=== PATIENT | female | born 1955 | race Two or more races ===

== ENCOUNTER 2019-01-14 00:28 | Emergency (ER) | payer OTHER ==
[~2019-01-14] VITALS: Ht 167.6 cm; Wt 71.7 kg
--- NOTE | 2019-01-14 00:37 | NUR ---
TO ER BED 11 BIB EMS C/O AMS, TACHYCARDIA. PT HOT TO TOUCH. PT AAOX1, NO ACUTE DISTRESS NOTED, RESP EVEN AND UNLABORED. PLACE PT ON CARDIAC MONITORING, CONTINUOUS POX. ER MD AT BEDSIDE TO EVAL PT WITH ORDERS RECEIVED.
[2019-01-14] MEDS ORDERED: ACETAMINOPHEN 650 MG/SUPP.RECT RC ONE ×2 (00:59→01:30)
[2019-01-14] MEDS ORDERED: CEFTRIAXONE 1GM BAG (ER ONLY) 50 ML IV ONE ×2 (00:59→01:00)
[2019-01-14] MEDS ORDERED: ACETAMINOPHEN ES 500 MG TABLET PO ONE (01:00)
[2019-01-14] MEDS ORDERED: IV NS 0.9% 1,000 ML BAG IV ONE (01:00)
[2019-01-14 01:02] LABS: BASOPHILS # (AUTO) 0.2 /CMM (0.0-0.2); BASOPHILS % (AUTO) 1.2 % (0.0-2.0); EOSINOPHILS % (AUTO) 0.2 % (0.0-6.0); HEMATOCRIT 48 % (33-45); HEMOGLOBIN 15.9 g/dL (11.5-14.8); LYMPHOCYTES # (AUTO) 1.9 /CMM (0.8-4.8); LYMPHOCYTES % (AUTO) 14.8 % (20.0-44.0); MEAN CORPUSCULAR HGB CONC 33 g/dl (31.0-36.0); MEAN CORPUSCULAR VOLUME 86 fL (82-100); MONOCYTES # (AUTO) 0.9 /CMM (0.1-1.30); MONOCYTES % (AUTO) 7.3 % (2.0-12.0); NEUTROPHILS # (AUTO) 9.9 /CMM (1.8-8.9); NEUTROPHILS % (AUTO) 76.5 % (43.0-81.0); PLATELET COUNT (AUTO) 404 /CMM (150-450); RED BLOOD CELL COUNT(AUTO) 5.58 MIL/uL (4.0-5.2); WHITE BLOOD COUNT (AUTO) 12.9 K/uL (4.3-11.0)
[2019-01-14 01:12] LABS: CALCIUM, SERUM 9.7 mg/dL (8.5-10.1); CARBON DIOXIDE 23 mmol/L (21-32); CHLORIDE 95 mmol/L (98-107); CREATININE 0.8 mg/dL (0.6-1.3); GLUCOSE 129 mg/dL (74-106); POTASSIUM 4.3 mmol/L (3.5-5.1); SODIUM SERUM 128 mmol/L (136-145); UREA NITROGEN, BLOOD 12 mg/dL (7-18)
[2019-01-14 01:25] LABS: ALANINE AMINOTRANSFERASE 18 U/L (12-78); ALBUMIN 3.7 g/dL (3.4-5.0); ALKALINE PHOSPHATASE 94 U/L (46-116); ASPARTATE AMINOTRANSFERASE 9 U/L (15-37); B-TYPE NATRIURETIC PEPTIDE 105 PG/ML (0-125); BILIRUBIN,DIRECT 0.1 mg/dL (0.0-0.2); BILIRUBIN,TOTAL 0.5 mg/dL (0.2-1.0); TOTAL PROTEIN, SERUM 8.7 g/dL (6.4-8.2)
--- NOTE | 2019-01-14 01:25 | NUR ---
I&O CATH DONE, NOTED CLEAR YELLOW URINE APPROXIMATELY 75ML'S. URINE SAMPLE COLLECTED AND SENT TO LAB.
[2019-01-14 01:31] LABS: APPEARANCE,URINE Cloudy (CLEAR); BILIRUBIN,URINE Negative (NEGATIVE); BLOOD, URINE Small Ery/uL (NEGATIVE); COLOR,URINE Yellow (YELLOW); KETONES,URINE Negative (NEGATIVE); LEUKOCYTE ESTERASE ,URINE Large (NEGATIVE); NITRITE, URINE Negative (NEGATIVE); PH,URINE 6.5 (5.0-8.0); PROTEIN,URINE 100 mg/dl (NEGATIVE); UGLUCOSE Negative (NEGATIVE); UROBILINOGEN,URINE 0.2 EU/dL (0.2)
[2019-01-14 02:07] LABS: BACTERIA,URINE Few /HPF (None Seen); SQUAMOUS EPITHELIAL CELL,UR Few /HPF (None Seen); WBC,URINE TOO NUMEROUS TO COUN /HPF (0-3)
--- NOTE | 2019-01-14 03:05 | NUR ---
PT RESTING QUIETLY, NO ACUTE DISTRESS NOTED, RESP EVEN AND UNLABORED. CALL LIGHT WITHIN REACH. LAB RESULTS RECEIVED. ER MD MADE AWARE. PENDING DISPOSITION. WILL CONTINUE TO MONITOR PT CLOSELY.
[2019-01-14] MEDS ORDERED: SENN-168 PO (03:25)
[2019-01-14] MEDS ORDERED: METO25TA6 PO (03:25)
[2019-01-14] MEDS ORDERED: CARB-93 PO (03:25)
[2019-01-14] MEDS ORDERED: PANT40TA2 PO (03:25)
[2019-01-14] MEDS ORDERED: TYL2T PO (03:25)
[2019-01-14] MEDS ORDERED: DOCU-141 PO (03:25)
[2019-01-14] MEDS ORDERED: LISI10TA5 PO (03:25)
[2019-01-14] MEDS ORDERED: AMLO5TAB9 PO (03:25)
[2019-01-14] MEDS ORDERED: TRAZ-182 PO (03:25)
[2019-01-14] MEDS ORDERED: ASPI-1169 PO (03:25)
[2019-01-14] MEDS ORDERED: HYDR-4384 PO (03:25)
--- NOTE | 2019-01-14 03:45 | NUR ---
PER KATHIA COLLADO SENIOR ENERGY MARKET COORDINATOR. PT WILL MOST LIKELY TRANSFER TO [facility]. PENDING TRANSFER INFORMATION
--- NOTE | 2019-01-14 04:10 | NUR ---
DR. HOUSTON ON THE PHONE WITH KATHIA SAMUEL, DR. YOON
--- NOTE | 2019-01-14 04:15 | NUR ---
PT RESTING QUIETLY, NO ACUTE DISTRESS NOTED, RESP EVEN AND UNLABORED. NO PAIN OR DISCOMFORT NOTED. TOTAL PT CARE DONE. CALL LIGHT WITHIN REACH. WILL CONTINUE TO MONITOR PT.
--- NOTE | 2019-01-14 05:33 | NUR ---
TRANSFER INFORMATION: [facility], [place] ACCEPTING MD: DR. YOON BED ASSIGNMENT: [id number] NUMBER FOR REPORT: [phone] NURSE FOR REPORT: JHONATAN WHEATLEY [facility] [id number]
--- NOTE | 2019-01-14 05:40 | NUR ---
NEW ETA FOR AMBULANCE. ETA: 45 MINS AMBULANCE CO: [facility]
--- NOTE | 2019-01-14 06:09 | NUR ---
JOYCE CALLED TO [facility] HEAD BATCHERJHONATAN WHEATLEY. AWAITING AMBULANCE TRANSPORT.
[2019-01-14 06:10] VITALS: BP 127/77
--- NOTE | 2019-01-14 06:26 | NUR ---
TRANSPORT AT [facility] REPORT GIVEN TO EMT.
== END 2019-01-14 06:47 | disposition short-term general hospital (02) ==
LOC: ER 00:29
DX: A41.9 Sepsis, unspecified organism (principal); N39.0 Urinary tract infection, site not specified; R41.0 Disorientation, unspecified; R00.0 Tachycardia, unspecified; I10 Essential (primary) hypertension; K21.9 Gastro-esophageal reflux disease without esophagitis; F03.90 Unspecified dementia, unspecified severity, without behavioral disturbance, psychotic disturbance, mood disturbance, and anxiety; Z88.5 Allergy status to narcotic agent; Z96.652 Presence of left artificial knee joint
CPT/HCPCS: 36415; 51702; 71045; 80048; 80076; 81001; 83605; 83880; 84145; 84484; 85025; 85730; 87040 ×2; 87086; 93005; 96365; 99285; J0696; J7030 ×2; 81000-TC

== ENCOUNTER 2019-04-07 03:18 | Inpatient (IN) | payer OTHER ==
[2019-04-07] VITALS (42 sets, daily range): BP systolic 81–131; BP diastolic 52–77
[~2019-04-07] VITALS: Ht 167.6 cm; Wt 61.7 kg
[~2019-04-07 03:18] MED LIST: AMLO5TAB9 PO; ASPI-1169 PO; CARB-93 PO; DOCU-141 PO; HYDR-4384 PO; LISI10TA5 PO; METO25TA6 PO; PANT40TA2 PO; SENN-168 PO; TRAZ-182 PO; TYL2T PO
--- NOTE | 2019-04-07 03:27 | NUR ---
Carmela oh in [facility] - 04/07/19 at 0418 by ANASTASIYA PATIENT RAN OUT OF BACK EXIT EMERGENCY DOOR.
[2019-04-07] MEDS ORDERED: ACETAMINOPHEN 650 MG/SUPP.RECT RC ONE ×3 (03:30→03:58)
[2019-04-07] MEDS ORDERED: IV NS 0.9% 1,000 ML BAG IV ONE (03:30)
[2019-04-07] MEDS ORDERED: PIPERACILLIN /TAZOBACTAM 3.375 G in IV D5W 50 ML IV ONE (03:30)
[2019-04-07] MEDS ORDERED: VANCOMYCIN 1 GM in IV D5W 250 ML IV ONE (03:30)
[2019-04-07] MEDS ORDERED: PIPERACILLIN /TAZOBACTAM 3.375 G VIAL IV ONE (03:37)
[2019-04-07] MEDS ORDERED: PROPOFOL 100 ML ONE (03:37)
[2019-04-07 03:44] LABS: BASOPHILS # (AUTO) 0.1 /CMM (0.0-0.2); BASOPHILS % (AUTO) 0.4 % (0.0-2.0); EOSINOPHILS % (AUTO) 0.1 % (0.0-6.0); HEMATOCRIT 51 % (33-45); HEMOGLOBIN 16.9 g/dL (11.5-14.8); LYMPHOCYTES # (AUTO) 1.2 /CMM (0.8-4.8); LYMPHOCYTES % (AUTO) 6.9 % (20.0-44.0); MEAN CORPUSCULAR HGB CONC 33 g/dl (31.0-36.0); MEAN CORPUSCULAR VOLUME 90 fL (82-100); MONOCYTES # (AUTO) 1.1 /CMM (0.1-1.30); MONOCYTES % (AUTO) 6.5 % (2.0-12.0); NEUTROPHILS # (AUTO) 15.1 /CMM (1.8-8.9); NEUTROPHILS % (AUTO) 86.1 % (43.0-81.0); PLATELET COUNT (AUTO) 578 /CMM (150-450); RED BLOOD CELL COUNT(AUTO) 5.64 MIL/uL (4.0-5.2); WHITE BLOOD COUNT (AUTO) 17.5 K/uL (4.3-11.0)
--- NOTE | 2019-04-07 03:44 | NUR ---
PT GOT INTUBATED AT THE BED SIDE BY DR. WEINER SUCCESSFULLY. SIZE 7.5 AND 26 AT LIP. PT TOLERATED THE PROCEDURE WELL.
--- NOTE | 2019-04-07 03:44 | NUR ---
END TIME FOR ZOSYN: 0414 LAC 18G
[2019-04-07 03:48] LABS: CARBON DIOXIDE 19 mmol/L (21-32); CHLORIDE 108 mmol/L (98-107); CREATININE 1.6 mg/dL (0.6-1.3); GLUCOSE 199 mg/dL (74-106); POTASSIUM 3.7 mmol/L (3.5-5.1); SODIUM SERUM 146 mmol/L (136-145); UREA NITROGEN, BLOOD 28 mg/dL (7-18)
[2019-04-07 03:54] LABS: ALANINE AMINOTRANSFERASE 14 U/L (12-78); ALBUMIN 3.4 g/dL (3.4-5.0); ALKALINE PHOSPHATASE 72 U/L (46-116); ASPARTATE AMINOTRANSFERASE 17 U/L (15-37); BILIRUBIN,DIRECT 0.2 mg/dL (0.0-0.2); TOTAL PROTEIN, SERUM 7.8 g/dL (6.4-8.2)
--- NOTE | 2019-04-07 04:00 | NUR ---
F/C INSERTED. URINE COLLECTED AND SENT TO THE LAB
[2019-04-07] MEDS ORDERED: VANCOMYCIN 1 GM VIAL ONE (04:03)
--- NOTE | 2019-04-07 04:05 | NUR ---
rt called to pt bedside for pt desaturation. pt found on unresponsive nrb spo2 approximately 85% pt intubated by dr thomson 7.5ett at 26cm. mist in the tube positive color change and equal chest rise. ett secured via anchorfast. pt placed on vent ac 20 450 100%, no peep due to decreased blood pressure at this time. ambu bag at bedside alarms set and audible. disconnect alarms checked. suctioned a large amount of thick green secretions. hr increased to 120, blood pressure decreased at this time. pt receiving no breathing tx at this time Addendum: 04/07/19 at 0411 by MARIAM CALVO RT Amended: Links added.
[2019-04-07 04:10] LABS: APPEARANCE,URINE Cloudy (CLEAR); BILIRUBIN,URINE SMALL (NEGATIVE); BLOOD, URINE Trace-intact Ery/uL (NEGATIVE); COLOR,URINE Dark (YELLOW); KETONES,URINE Trace (NEGATIVE); LEUKOCYTE ESTERASE ,URINE Trace (NEGATIVE); NITRITE, URINE Negative (NEGATIVE); PH,URINE 5.5 (5.0-8.0); PROTEIN,URINE 100 mg/dl (NEGATIVE); UGLUCOSE Negative (NEGATIVE); UROBILINOGEN,URINE 0.2 EU/dL (0.2)
[2019-04-07] MEDS ORDERED: MIDAZOLAM HCL 5 MG/5ML VIAL ONE (04:13)
[2019-04-07] MEDS ORDERED: MIDAZOLAM HCL 5 MG/5ML VIAL IV ONE (04:30)
--- NOTE | 2019-04-07 04:44 | NUR ---
X RAY AT THE BED SIDE
--- NOTE | 2019-04-07 05:00 | NUR ---
PANEL PAGED PER ER MD ORDER.
--- NOTE | 2019-04-07 05:01 | NUR ---
ER TALKING TO DR. MURGUIA REGARDING PT ADMISSION.
[2019-04-07] MEDS ORDERED: GABA800T11 PO (05:09)
[2019-04-07] MEDS ORDERED: MULT1TAB73 PO (05:09)
[2019-04-07] MEDS ORDERED: CRAN450C PO (05:09)
[2019-04-07] MEDS ORDERED: ASCO500W7 PO (05:09)
[2019-04-07] MEDS ORDERED: FERR325T23 PO (05:09)
[2019-04-07] MEDS ORDERED: LATA2.5D2 EACHEYE (05:09)
--- NOTE | 2019-04-07 05:09 | NUR ---
RT AT THE BED SIDE FOR ABG DRAW
[2019-04-07 05:10] LABS: RBC,URINE 0-2 /HPF (0-2)
[2019-04-07 05:11] LABS: BACTERIA,URINE Rare /HPF (None Seen); CALCIUM OXALATE CRYSTALS,UR MANY /HPF (None Seen); SQUAMOUS EPITHELIAL CELL,UR Moderate /HPF (None Seen)
[2019-04-07 05:28] LABS: ABG BASE EXCESS -9.8 mmol/L; ABG OXYGEN SATURATION 98.8 % (92.0-98.5); ABG PCO2 28.2 mmHg (35.0-45.0); ABG PH 7.331 (7.350-7.450); AaDO2 453.8 mmHg; COHb 0.2 % (0.5-1.5); MetHb 0.6 % (0.0-1.5); PEEP,BG 0 cm H2O; SITE, ABG Right Radial; VENT MODE, BG AC 20 450 100% +0; VT, ABG 450 mL
[2019-04-07] MEDS ORDERED: ACETAMINOPHEN 325 MG TABLET PO PRN (05:30)
[2019-04-07] MEDS ORDERED: SUCCINYLCHOLINE CHLORIDE 20 MG/ML VIAL IV ONE ×2 (05:30→08:58)
[2019-04-07] MEDS ORDERED: HYDROCODONE/APAP 5/325MG 1 EACH TABLET PO PRN (05:30)
[2019-04-07] MEDS ORDERED: ZOLPIDEM TARTRATE 5 MG TABLET PO PRN (05:30)
[2019-04-07] MEDS ORDERED: Z GUARD REMEDY 2 OZ OINT TP PRN (05:30)
[2019-04-07] MEDS ORDERED: ETOMIDATE 2 MG/ML VIAL IV ONE ×2 (05:30→08:58)
[2019-04-07] MEDS ORDERED: MAGNESIUM HYDROXIDE 30 ML UDC PO PRN (05:30)
[2019-04-07] MEDS ORDERED: ONDANSETRON HCL/PF 4 MG/2 ML VIAL IVP PRN (05:30)
[2019-04-07] MEDS ORDERED: MAG HYDROX/AL HYDROX/SIMETH 30 ML UDC PO PRN (05:30)
[2019-04-07] MEDS ORDERED: PROPOFOL 100 ML IV PRN (06:00)
[2019-04-07] MEDS ORDERED: OSELTAMIVIR PHOSPHATE 75 MG CAPSULE PO ONE (06:30)
[2019-04-07] MEDS ORDERED: OSELTAMIVIR PHOSPHATE 75 MG CAPSULE ONE (06:36)
--- NOTE | 2019-04-07 07:56 | NUR ---
REPORT GIVEN TO ICU NURSE SAMRA ISRAEL.
--- NOTE | 2019-04-07 08:16 | NUR ---
PATIENT TRANSFERRED TO ICU VIA ACLS PROTOCOL. RT AT BEDSIDE. NO DISTRESS NOTED. ENDORSED TO DANIELLE ISRAEL.
--- NOTE | 2019-04-07 08:20 | NUR ---
ICU/RN: REVEIVED REPORT FROM JHONATAN RAMOS. PT TRANSFERRED TO [facility] VIA [facility]. PT INTUBATED ETT7.5, 26 AT THE LIP ON VENT SETTINGS ORDERED BY MD. NO ACUTE DISTRESS NOTED. PT ON DIPRIVAN, 5MCG/KG/MIN. OPENS EYES, FOLLOWS SIMPLE COMMANDS. MENDOZA CATH IN PLACE, DRAINING YELLOW URINE. PIVS PATENT AND INTACT, NO S/S OF INFECTION OR INFILTRATION NOTED. RIGHT NARE NG TUBE IN PLACE, PLACEMENT VERIFIED. BILATERAL SOFT RESTRAINTS FOR SAFETY, ASSESSED PER PROTOCOL. ALL NEEDS WILL BE ATTENDED TO, SAFETY MEASURES TAKEN, BED IN LOW POSITION, SIDE RAILS UP, CALL LIGHT WITHIN REACH. SKIN PHOTOS DONE AND PLACED IN CHART, WILL CONTINUE CARE.
[2019-04-07] MEDS ORDERED: FEE PK DOSING 1 MIN EA MC ONE (08:36)
[2019-04-07] MEDS: IV NS 0.9% 1,000 ML IV PRN ×2 (09:57→17:50)
[2019-04-07] MEDS: PANTOPRAZOLE 40 MG VIAL IV SCH (09:57)
[2019-04-07] MEDS ORDERED: IV NS 0.9% 500 ML IV ONE (10:00)
--- NOTE | 2019-04-07 10:00 | NUR ---
ICU/RN: BORDERLINE BP, TLO ORDERS RECEIVED FOR 500ML BOLUS FROM , WILL FOLLOW THROUGH.
[2019-04-07] MEDS: PROPOFOL 100 ML IV PRN (10:13)
[2019-04-07] MEDS: PIPERACILLIN /TAZOBACTAM 2.25 G in IV D5W 50 ML IV SCH ×3 (12:36→21:05)
--- NOTE | 2019-04-07 15:30 | NUR ---
ICU/RN: PER PICC LINE ORDERS RECEIVED AND INSERTED RIGHT UPPER ARM.
--- NOTE | 2019-04-07 17:33 | NUR ---
ICU/RN: REPORT ENDORSED TO ANEUDY ISRAEL FOR SKY. PT INTUBATED AND SEDATED, ON VENT SETTINGS ORDERED, NO DISTRESS. DIPRIVAN INFUSING FOR SEDATION. IVF INFUSING ORDERED. ALL NEEDS ATTENDED TO, SAFETY MEASURES TAKEN. WILL CONTINUE CARE.
--- NOTE | 2019-04-07 17:45 | NUR ---
RN NOTE: Assumed care for the patient and bedside report was given by JHONATAN Rodríguez. Patient was sedated and intubated with Diprivan 5mcg/kg/hr and NS@ 125ml/hr. Patient was noted with comfortable position with HOB elevated and (R) nare NGT clamped. Saturating 100% with current ventilator setting. Martines catheter was noted with yellow urine draining to gravity and it was emptied. Will monitor the patient's condition.
--- NOTE | 2019-04-07 19:10 | NUR ---
RN NOTE: Bedside report was given to JHONATAN Bolanos for continuity of care. Patient was stable at this time. Patient's came @1900 and he was given an update regarding the patient's condition and plan of care. Gave him the unit's telephone number for him to get update regarding the patient's condition.
--- NOTE | 2019-04-07 19:40 | NUR ---
RN NOTES PATIENT RECEIVED ORALLY INTUBATED WITH ETT 7.5 AND 26 CM AT LIP WITH VENT SETTING AC 20 TV450 AND FIO2 50%NO PEEP. EYES IS OPEN, RESPONSIVE TO TACTILE STIMULI ANSWER QUESTION AND SOMEWHAT UNDERSTAND QUESTION. CALM AND COOPERATIVE AT THIS TIME. SR ON TELE MONITOR. RIGHT NGT INTACT AND PATENT CLAMPED. IV SITE ON LAC AND RAC WELL MARY JANE WITH DIPRIVAN @ 5 MCG/KG/MIN AND NS @ 125 ML/HR INTACT AND PATENT. KEPT BILATERAL WRIST RESTRAINT IN PLACED FOR SAFETY NOT TO PULL OUT THE TUBES. KEPT PT CLEAN AND DRY. REPOSITIONED FOR SKIN MANAGEMENT. WILL CLOSELY MONITOR.
[2019-04-07] MEDS ORDERED: VANCOMYCIN 0.75 GM in IV D5W 250 ML IV SCH (23:00)
[2019-04-08] VITALS (24 sets, daily range): BP systolic 89–140; BP diastolic 63–84
[2019-04-08] MEDS: PROPOFOL 100 ML IV PRN (00:57)
[2019-04-08] MEDS: IV NS 0.9% 1,000 ML IV PRN (02:30)
[2019-04-08] MEDS: PIPERACILLIN /TAZOBACTAM 2.25 G in IV D5W 50 ML IV SCH ×2 (03:36→09:14)
[2019-04-08 04:41] LABS: BASOPHILS % (AUTO) 0.1 % (0.0-2.0); EOSINOPHILS % (AUTO) 0.3 % (0.0-6.0); HEMATOCRIT 34 % (33-45); HEMOGLOBIN 11.5 g/dL (11.5-14.8); LYMPHOCYTES # (AUTO) 0.8 /CMM (0.8-4.8); LYMPHOCYTES % (AUTO) 6.7 % (20.0-44.0); MEAN CORPUSCULAR HGB CONC 34 g/dl (31.0-36.0); MEAN CORPUSCULAR VOLUME 89 fL (82-100); MONOCYTES # (AUTO) 0.6 /CMM (0.1-1.30); NEUTROPHILS # (AUTO) 10.7 /CMM (1.8-8.9); NEUTROPHILS % (AUTO) 87.9 % (43.0-81.0); PLATELET COUNT (AUTO) 304 /CMM (150-450); RED BLOOD CELL COUNT(AUTO) 3.86 MIL/uL (4.0-5.2); WHITE BLOOD COUNT (AUTO) 12.1 K/uL (4.3-11.0)
[2019-04-08 04:52] LABS: CALCIUM, SERUM 8.4 mg/dL (8.5-10.1); CREATININE 0.6 mg/dL (0.6-1.3); MAGNESIUM 1.6 mg/dL (1.8-2.4); PHOSPHORUS 1.5 mg/dL (2.5-4.9)
[2019-04-08 04:55] LABS: POTASSIUM 2.4 mmol/L (3.5-5.1)
[2019-04-08 05:09] LABS: THYROID STIMULATING HORMONE 1.223 uIU/mL (0.358-3.74)
--- NOTE | 2019-04-08 06:00 | NUR ---
RN NOTES CALLED DR. MURGUIA REPORTED REGARDING PATIENT CRITICAL VALUE OF POTASSIUM 2.4 WITH NEW ORDER TO GIVE KCL 80 MEQ IV NOTED AND CARRIED OUT ORDERS.
[2019-04-08] MEDS: POTASSIUM CL. PREMIX PERIPHER. 50 ML IV SCH ×8 (06:04→13:55)
[2019-04-08] MEDS: IV D5/0.45 NACL 1,000 ML IV PRN (06:45)
--- NOTE | 2019-04-08 07:00 | NUR ---
RN NOTES PATIENT IS AWAKE CALM AND COOPERATIVE AT THIS TIME. TOLERATED ETT AND VENT SETTING ORDERED. AFEBRILE. VSS. IV SITE INTACT AND PATENT WITH DIPRIVAN @ 15 MCG/KG/MIN, STARTED IVF D5 1/2NS @ 50 ML/HR AND 2ND BAG OF POTASSIUM CHLORIDE RUNNING. ALL IV SITE ARE INTACT AND PATENT. NGT STILL CLAMPED. MENDOZA CATH DRAINED VIA GRAVITY WITH YELLOW SEDIMENTED OUTPUT. KEPT PT CLEAN AND DRY. TURNED AND REPOSITIONED Q2H AND PRN. ENDORSED CONTINUITY OF CARE TO AM NURSE.
--- NOTE | 2019-04-08 07:15 | NUR ---
SYSTEMS SECURITY ANALYST OPENING NOTES RECEIVED REPORT FROM PM NURSE.PATIENT ORALLY INTUBATED WITH ETT 7.5 AND 26 CM AT LIP LEVEL. WITH VENT SETTINGS TOLERATING WELL. EYES OPEN SPONTANEOUSLY. RESPONSIVE TO TACTILE STIMULI ANSWER SIMPLE QUESTIONS BY NODDING HEAD. CALM AND COOPERATIVE AT THIS TIME. SR ON TELE MONITOR. RIGHT NGT INTACT AND PATENT CLAMPED. IV SITE ON LAC AND RAC WELL MARY JANE WITH DIPRIVAN @ 15 MCG/KG/MIN AND IVF @50 ML/HR INTACT AND PATENT. ON BILATERAL WRIST RESTRAINT IN PLACED FOR SAFETY NOT TO PULL OUT THE TUBES. SAFETY ND ASPIRATION MEASURES IN PLACE.BED IS LOW AND IN LOCKED POSITION .CALL LIGHT IN REACH.BED ALARM ON.SR3.WILL CONTINUE TO MONITOR.
[2019-04-08] MEDS ORDERED: DC PROPOFOL WHEN EXTUBATED XX PRN (08:00)
[2019-04-08] MEDS: PANTOPRAZOLE 40 MG VIAL IV SCH (08:07)
[2019-04-08] MEDS ORDERED: MAG30ORA PO (08:39)
[2019-04-08] MEDS ORDERED: ASCO500T9 PO (08:39)
[2019-04-08] MEDS ORDERED: GABA-532 PO (08:39)
[2019-04-08] MEDS ORDERED: MULT-447 PO (08:39)
[2019-04-08] MEDS ORDERED: MAGN400O6 PO (08:39)
[2019-04-08] MEDS ORDERED: NA P133E RC (08:39)
[2019-04-08] MEDS ORDERED: AMIN30LI2 PO (08:39)
[2019-04-08] MEDS ORDERED: GUAI100S11 PO (08:39)
[2019-04-08] MEDS ORDERED: BISA10SU11 RC (08:39)
[2019-04-08] MEDS ORDERED: OSEL75CA PO (08:39)
--- NOTE | 2019-04-08 09:11 | NUR ---
RAISE MINER NOTE SEEN BY .GOT NEW ORDER FOR SIMV 4 PS 15 PEEP 5 .ABG IN 30 MIN ON SIMV.PATIENT OFF FROM PROPOF[facility].WILL CONTINUE TO MONITOR.
--- NOTE | 2019-04-08 09:37 | NUR ---
WOUND CARE CONSULT: PT PRESENTS WITH LEFT LOWER LEG IMMOBILIZER WITH SCARRING TO POSTERIOR LOWER LEG AND TO KNEE, SACRAL DEEP TISSUE INJURY (INTACT) WITH SURROUNDING SCARRING, AND RT BACK AREA INTACT DEEP TISSUE INJURY, ALL PRESENT ON ADMISSION. RECOMMEND DPM AND SURGICAL CONSULT. DR MARTINEZ AND DR CASPER NOTIFIED OF CONSULT REQUESTS. PT ONSTRYKER ISOFLEX LOW AIRLOSS BED. WILL SEE PRN. SAMUEL IN AGREEMENT WITH PLAN OF CARE. Addendum: 04/08/19 at 0942 by TORREY CHRISTIANSON WNDNU Amended: Links added.
[2019-04-08 10:03] LABS: ABG BASE EXCESS -5.3 mmol/L; ABG OXYGEN SATURATION 95.3 % (92.0-98.5); ABG PCO2 24.6 mmHg (35.0-45.0); ABG PH 7.456 (7.350-7.450); ABG PO2 74.7 mmHg (75.0-100.0); AaDO2 254.1 mmHg; COHb 0.2 % (0.5-1.5); MetHb 0.3 % (0.0-1.5); O2Hb 94.8 % (94.0-97.0); SITE, ABG Right Radial
--- NOTE | 2019-04-08 10:23 | NUR ---
RT PER DR CAMPBELL PATIENT WAS WEANED AND EXTUBATED. PLACED ON 5L N/C KEEPING SPO2 ABOVE 92% PATIENT AWAKE RESPONSIVE. STRONG COUGH. RN AT BEDSIDE.
--- NOTE | 2019-04-08 10:25 | NUR ---
BOSOM PRESSER NOTE PATIENT WAS PLACED ON SIMV.ABG DONE.RELAYED RESULT 6TO .DR HIDALGO SEEN THE PATIENT IN ROOM.GOT NEW ORDER FOR EXTUBATION.PATIENT WAS WEANED AND EXTUBATED. PLACED ON 5L N/C KEEPING SPO2 ABOVE 92%. PATIENT AWAKE RESPONSIVE. STRONG COUGH. WILL CONTINUE TO MONITOR.
[2019-04-08] MEDS: VANCOMYCIN 0.75 GM in IV D5W 250 ML IV SCH ×2 (11:21→23:08)
[2019-04-08] MEDS ORDERED: ZOSYN IVPB 3.375 G in IV D5W 50ml IV SCH (12:00)
[2019-04-08] MEDS: Magnesium 1GM/D5W 100ML PREMIX 100 ML IV SCH ×2 (12:30→13:55)
[2019-04-08] MEDS: ENOXAPARIN SODIUM 40 MG/0.4 ML DISP.SYRIN SQ SCH (13:57)
[2019-04-08] MEDS ORDERED: Sodium Phosphate 15 MMOL in IV D5W 250 ML IV ONE (14:00)
[2019-04-08] MEDS: ZOSYN IVPB 3.375 G in IV D5W 50ml IV SCH ×2 (15:46→22:27)
--- NOTE | 2019-04-08 16:05 | NUR ---
SUPERVISOR BENZENE REFINING NOTE GOT CALL FROM MICHELLE FROM [facility].PATIENT POSITIVE FOR MARS A NARES.RIPPER OPERATOR ИРИНА MADE AWARE.PLACED ON CONTACT ISOLATION.GOT NEW ORDERS.
[2019-04-08] MEDS: NEOMY SULF/BACITRAC ZN/POLY 15 GM TUBE TP SCH (18:31)
--- NOTE | 2019-04-08 19:23 | NUR ---
IT GENERALIST CLOSING NOTE PATIENT IN BED.ALERT ABLE TO ANSWER YES OR NO QUESTIONS.S/P EXTUBATION.V/S STABLE.ON O2 5L VIA NASAL CANULA.NO SOB NO DISTRESS NOTED.IV LINES ARE INTACT AND PATENT.WITH IVF ORDERED.BED IS LOW AND IN LOCKED POSITION.CALL LIGHT IN REACH .BED ALARM ON .SR X3.ENDORSED TO PM NURSE FOR SKY.
--- NOTE | 2019-04-08 19:51 | NUR ---
agricultural loan officer. received the pt rest on the bed. awake, alert, follow commands. lethargic, chest congested. quality assurance monitor showing nsr. iv rt upper arm picc line ivf d51/2ns 50ml/h. hob elevated. fc patent. rt nare ngt intact. pt is npo. oxygen 5l via nasal cannula. sat 98%. will continue to monitor vitals
[2019-04-08] MEDS: MUPIROCIN OINT 2% 22 GM TUBE SCH (22:30)
[2019-04-09] VITALS (20 sets, daily range): BP systolic 110–168; BP diastolic 55–94
[2019-04-09] MEDS: IV D5/0.45 NACL 1,000 ML IV PRN (01:46)
[2019-04-09 04:34] LABS: BASOPHILS # (AUTO) 0.1 /CMM (0.0-0.2); BASOPHILS % (AUTO) 0.8 % (0.0-2.0); EOSINOPHILS % (AUTO) 0.9 % (0.0-6.0); HEMATOCRIT 34 % (33-45); HEMOGLOBIN 11.1 g/dL (11.5-14.8); LYMPHOCYTES # (AUTO) 0.9 /CMM (0.8-4.8); LYMPHOCYTES % (AUTO) 7.4 % (20.0-44.0); MEAN CORPUSCULAR HGB CONC 33 g/dl (31.0-36.0); MEAN CORPUSCULAR VOLUME 89 fL (82-100); MONOCYTES # (AUTO) 0.5 /CMM (0.1-1.30); MONOCYTES % (AUTO) 4.2 % (2.0-12.0); NEUTROPHILS % (AUTO) 86.7 % (43.0-81.0); PLATELET COUNT (AUTO) 320 /CMM (150-450); RED BLOOD CELL COUNT(AUTO) 3.81 MIL/uL (4.0-5.2); WHITE BLOOD COUNT (AUTO) 12.7 K/uL (4.3-11.0)
[2019-04-09 04:50] LABS: BILIRUBIN,TOTAL 0.4 mg/dL (0.2-1.0); CALCIUM, SERUM 8.3 mg/dL (8.5-10.1); CREATININE 0.5 mg/dL (0.6-1.3); MAGNESIUM 1.9 mg/dL (1.8-2.4); PHOSPHORUS 1.8 mg/dL (2.5-4.9); TOTAL PROTEIN, SERUM 5.3 g/dL (6.4-8.2)
--- NOTE | 2019-04-09 04:55 | NUR ---
RETORT FIRER DURING SHIFT NO COMPLICATION NOTED HOB ELEVATED, FC PATENT. URINE DRAINING. REMAINING SAME OXYGEN TOLERATED WELL. CARE GIVEN. IV RT HAND IVF D5 1/2 NS 50ML/H. FC PATENT/ LT HAND REMAINING SAME OXYGEN TOLERATED WELL. SAT 99%, NO ACUTE DISTRESS NOTED, SENIOR COURT OFFICE ASSISTANT SHOWING NSR. TURN AND REPOSITION Q2H. WILL CONTINUE TO MONITOR VITALS.
[2019-04-09] MEDS: ZOSYN IVPB 3.375 G in IV D5W 50ml IV SCH ×4 (05:10→21:10)
[2019-04-09 05:15] LABS: POTASSIUM 2.5 mmol/L (3.5-5.1)
[2019-04-09] MEDS: POTASSIUM CL. PREMIX PERIPHER. 50 ML IV SCH ×8 (06:48→14:48)
--- NOTE | 2019-04-09 07:40 | NUR ---
ICU/RN: INITIAL NOTES,AM RECEIVED BEDSIDE REPORT FROM NIGHT NURSE. PT ALERT, AWAKE, FOLLOWS COMMANDS. ON 5LITERS NASAL CANULA, NO ACUTE DISTRESS NOTED AT THIS TIME. SINUS ON TELE. MENDOZA CATH DRAINING YELLOW URINE. PT SCHEDULED FOR SWALLOW EVAL THIS AM. TURNED AND REPOSITIONED. RIGHT UPPER ARM PICC PATENT AND INTACT. DRESSING C/D/I. ALL NEEDS WILL BE ATTENDED TO, SAFETY MEASURES TAKEN, BED IN LOW POSITION, SIDE RAILS UP, CALL LIGHT WITHIN REACH. WILL CONTINUE CARE.
[2019-04-09] MEDS: ENOXAPARIN SODIUM 40 MG/0.4 ML DISP.SYRIN SQ SCH (08:53)
[2019-04-09] MEDS: PANTOPRAZOLE 40 MG VIAL IV SCH (08:53)
[2019-04-09] MEDS: NEOMY SULF/BACITRAC ZN/POLY 15 GM TUBE TP SCH (08:54)
[2019-04-09] MEDS: MUPIROCIN OINT 2% 22 GM TUBE SCH ×2 (08:54→21:02)
[2019-04-09] MEDS ORDERED: VANCOMYCIN 1 GM in IV D5W 250 ML IV SCH (12:00)
[2019-04-09] MEDS: VANCOMYCIN 0.75 GM in IV D5W 250 ML IV SCH (12:51)
[2019-04-09] MEDS ORDERED: Sodium Phosphate 15 MMOL in IV D5W 250 ML IV ONE (13:00)
--- NOTE | 2019-04-09 14:00 | NUR ---
ICU/RN: SWALLOW EVAL DONE, PT ON PUREE DIET. WILL FOLLOW THROUGH.
--- NOTE | 2019-04-09 14:34 | NUR ---
ICU/RN: PT TRANSFERRED TO 327-1 WITH ACLS GUIDELINES. ALL BELONGINGS AND MEDICATIONS TRANSFERRED WITH PT. PT ON 4 LITERS 02 VIA NASAL CANULA, NO DISTRESS NOTED. SINUS ON TELE. BED BATH GIVEN. ALL NEEDS ATTENDED TO, SAFETY MEASURES TAKEN, BED IN LOW POSITION, SIDE RAILS UP, CALL LIGHT WITHIN REACH. DISCONTINUED NG TUBE. PT NOW ON PUREE DIET. ENDORSED REPORT TO GEENA FOR SKY.
[2019-04-09] MEDS: Potassium Chloride 40 MEQ in IV D5/0.45 NACL 1,000 ML IV PRN (14:50)
--- NOTE | 2019-04-09 19:15 | NUR ---
TELE/RN OPENING NOTES: RECEIVED PATIENT FROM JHONATAN SEAY. PATIENT IS IN BED SLEEPING. RESPONDS WHEN TALKED TO, A/OX2. NO SOB NOTED, NO S/S OF DISTRESS, NO COMPLAINS OF PAIN OR DISCOMFORT AT THIS TIME. IV SITE IS ON THE RIGHT UPPER ARM PICC LINE AND LEFT AC #18G. INTACT, PATENT AND FLUSHING WELL. ALL NEEDS MET AND RENDERED AT THIS TIME. ON TELE MONITORING WITH READING SR HR 85. SAFETY MEASURES IN PLACE. BED IS LOW, LOCKED POSITION WITH SR UP X2. WILL CONTINUE TO MONITOR ACCORDINGLY.
[2019-04-09] MEDS: VANCOMYCIN 1 GM in IV D5W 250 ML IV SCH (23:04)
[2019-04-10] VITALS (11 sets, daily range): BP systolic 122–145; BP diastolic 72–98
[2019-04-10] MEDS: ZOSYN IVPB 3.375 G in IV D5W 50ml IV SCH ×4 (04:23→21:11)
--- NOTE | 2019-04-10 06:32 | NUR ---
TELE/RN CLOSING NOTES: RECEIVED PATIENT IN BED SLEEPING. RESPONDS WHEN TALKED TO, A/OX2. NO SOB NOTED, NO S/S OF DISTRESS, NO COMPLAINS OF PAIN OR DISCOMFORT AT THIS TIME. IV SITE IS ON THE RIGHT UPPER ARM PICC LINE AND LEFT AC #18G. INTACT, PATENT AND FLUSHING WELL. ALL NEEDS MET AND RENDERED AT THIS TIME. ON TELE MONITORING WITH READING SR HR 75. SAFETY MEASURES IN PLACE. BED IS LOW, LOCKED POSITION WITH SR UP X2. WILL CONTINUE TO MONITOR ACCORDINGLY.
--- NOTE | 2019-04-10 08:00 | NUR ---
TELE/RN CLOSING NOTES: RECEIVED PATIENT IN BED AWAKE AND CONFUSED. RESPONDS WHEN TALKED TO, A/OX2. NO SOB NOTED, NO S/S OF DISTRESS, NO COMPLAINS OF PAIN OR DISCOMFORT AT THIS TIME. IV SITE IS ON THE RIGHT UPPER ARM PICC LINE AND LEFT AC #18G. INTACT, PATENT .ON TELE MONITORING WITH READING SR HR 75. SAFETY MEASURES IN PLACE. BED IS LOW, LOCKED POSITION WITH SR UP X2. WILL CONTINUE TO MONITOR ACCORDINGLY.
--- NOTE | 2019-04-10 08:00 | NUR ---
TELE/RN AM NOTES: RECEIVED PATIENT IN BED SLEEPING. RESPONDS WHEN TALKED TO, A/OX2. NO SOB NOTED, NO S/S OF DISTRESS, NO COMPLAINS OF PAIN OR DISCOMFORT AT THIS TIME. IV SITE IS ON THE RIGHT UPPER ARM PICC LINE AND LEFT AC #18G. INTACT, PATENT AND FLUSHING WELL. ALL NEEDS MET AND RENDERED AT THIS TIME. ON TELE MONITORING WITH READING SR HR 75. SAFETY MEASURES IN PLACE. BED IS LOW, LOCKED POSITION WITH SR UP X2. ON CONTACT ISOLATION PRECAUTIONS FOR MRSA NARES AND URINE E COLI. WILL CONTINUE TO MONITOR ACCORDINGLY.
[2019-04-10 08:15] LABS: BASOPHILS % (AUTO) 0.1 % (0.0-2.0); EOSINOPHILS % (AUTO) 0.9 % (0.0-6.0); HEMATOCRIT 35 % (33-45); HEMOGLOBIN 11.9 g/dL (11.5-14.8); LYMPHOCYTES # (AUTO) 1.1 /CMM (0.8-4.8); LYMPHOCYTES % (AUTO) 12.8 % (20.0-44.0); MEAN CORPUSCULAR HGB CONC 34 g/dl (31.0-36.0); MEAN CORPUSCULAR VOLUME 89 fL (82-100); MONOCYTES # (AUTO) 0.5 /CMM (0.1-1.30); MONOCYTES % (AUTO) 5.9 % (2.0-12.0); NEUTROPHILS # (AUTO) 7.1 /CMM (1.8-8.9); NEUTROPHILS % (AUTO) 80.3 % (43.0-81.0); PLATELET COUNT (AUTO) 349 /CMM (150-450); RED BLOOD CELL COUNT(AUTO) 3.97 MIL/uL (4.0-5.2); WHITE BLOOD COUNT (AUTO) 8.8 K/uL (4.3-11.0)
[2019-04-10 08:25] LABS: CALCIUM, SERUM 8.6 mg/dL (8.5-10.1); CREATININE 0.5 mg/dL (0.6-1.3); MAGNESIUM 1.7 mg/dL (1.8-2.4); PHOSPHORUS 2.6 mg/dL (2.5-4.9)
[2019-04-10] MEDS: PANTOPRAZOLE 40 MG VIAL IV SCH (09:20)
[2019-04-10] MEDS: ENOXAPARIN SODIUM 40 MG/0.4 ML DISP.SYRIN SQ SCH (09:21)
[2019-04-10] MEDS: NEOMY SULF/BACITRAC ZN/POLY 15 GM TUBE TP SCH (09:41)
[2019-04-10] MEDS: MUPIROCIN OINT 2% 22 GM TUBE SCH ×2 (09:42→21:11)
[2019-04-10] MEDS ORDERED: POTASSIUM CHLORIDE 20 MEQ TAB.PRT.SR PO ONE (10:00)
[2019-04-10] MEDS: VANCOMYCIN 1 GM in IV D5W 250 ML IV SCH ×2 (10:34→23:15)
[2019-04-10] MEDS: Magnesium 1GM/D5W 100ML PREMIX 100 ML IV SCH ×2 (11:32→13:54)
[2019-04-10] MEDS ORDERED: ACETAMINOPHEN 325 MG TABLET PO PRN (14:30)
[2019-04-10] MEDS ORDERED: MAGNESIUM HYDROXIDE 30 ML UDC PO PRN (14:30)
[2019-04-10] MEDS ORDERED: MAG HYDROX/AL HYDROX/SIMETH 30 ML UDC PO PRN (14:30)
[2019-04-10] MEDS ORDERED: BISACODYL SUPP (10 MG) 10 MG/SUPP.RECT SUPP.RECT RC PRN (14:30)
[2019-04-10] MEDS: PROSOURCE / PROSTAT (PYXIS) 30 ML UDC PO SCH (15:02)
[2019-04-10] MEDS ORDERED: IPRATROPIUM NEB FS 0.5 MG/2.5 ML AMPUL.NEB NEB SCH (15:30)
[2019-04-10] MEDS: ASCORBIC ACID 500 MG TABLET PO SCH (17:32)
[2019-04-10] MEDS: DOCUSATE SODIUM 100 MG CAPSULE PO SCH (17:32)
[2019-04-10] MEDS: FERROUS SULFATE (325 MG) 325 MG/TAB TABLET PO SCH (17:32)
--- NOTE | 2019-04-10 19:32 | NUR ---
MS RN OPENING NOTES PATIENT RECEIVED RESTING IN BED IN HIGH FOWLERS POSITION WITH VISITOR AT BEDSIDE, A/O X2. TELE READING SR. ON 4L OF O2 VIA NC WITH BREATHING EVEN AND UNLABORED, NO SOB NOTED. NO SIGNS OF ACUTE DISTRESS. NO COMPLAINTS OF PAIN OR DISCOMFORT, NO FACIAL GRIMACING NOTED. MENDOZA CATHETER NOTED AND IN PLACE. R UA PICCLINE AND IV ACCESS ON LAC #18 NOTED. SAFETY PRECAUTIONS IN PLACE WITH BED IN LOWEST POSITION, CALL LIGHT WITHIN REACH, BREAKS ON, AND SIDE RIALS UP. WILL CONTINUE TO MONITOR.
[2019-04-10] MEDS: Potassium Chloride 40 MEQ in IV D5/0.45 NACL 1,000 ML IV PRN (21:11)
[2019-04-10] MEDS ORDERED: SENNOSIDES 8.6 MG TABLET PO SCH (22:00)
[2019-04-10] MEDS ORDERED: LATANOPROST EYE DROP 0.005% 2.5 ML BOTTLE EACHEYE SCH (22:00)
[2019-04-11] VITALS: BP 134/93
[2019-04-11 04:00] VITALS: BP 140/87
[2019-04-11] MEDS: ZOSYN IVPB 3.375 G in IV D5W 50ml IV SCH ×3 (04:01→15:59)
[2019-04-11 04:24] VITALS: BP 140/87
--- NOTE | 2019-04-11 06:52 | NUR ---
CHARGE OUT CLERK CLOSING NOTES PATIENT RESTING IN BED IN HIGH FOWLERS POSITION WITH VISITOR AT BEDSIDE, A/O X2. TELE READING SR. ON 4L OF O2 VIA NC WITH BREATHING EVEN AND UNLABORED, NO SOB NOTED. NO SIGNS OF ACUTE DISTRESS. NO COMPLAINTS OF PAIN OR DISCOMFORT, NO FACIAL GRIMACING NOTED. MENDOZA CATHETER NOTED AND IN PLACE. R UA PICCLINE AND IV ACCESS ON LAC #18 NOTED. SAFETY PRECAUTIONS IN PLACE WITH BED IN LOWEST POSITION, CALL LIGHT WITHIN REACH, BREAKS ON, AND SIDE RIALS UP. ALL NEEDS ATTENDED TO. PATIENT WAS KEPT CLEAN AND DRY THROUGHOUT THE NIGHT. WILL ENDORSE TO ONCOMING SHIFT ABOUT SKY.
[2019-04-11 07:55] LABS: EOSINOPHILS % (AUTO) 1.2 % (0.0-6.0); HEMATOCRIT 38 % (33-45); HEMOGLOBIN 12.6 g/dL (11.5-14.8); LYMPHOCYTES % (AUTO) 12.1 % (20.0-44.0); MEAN CORPUSCULAR HGB CONC 34 g/dl (31.0-36.0); MEAN CORPUSCULAR VOLUME 88 fL (82-100); MONOCYTES # (AUTO) 0.7 /CMM (0.1-1.30); MONOCYTES % (AUTO) 7.8 % (2.0-12.0); NEUTROPHILS # (AUTO) 6.8 /CMM (1.8-8.9); NEUTROPHILS % (AUTO) 78.9 % (43.0-81.0); PLATELET COUNT (AUTO) 340 /CMM (150-450); RED BLOOD CELL COUNT(AUTO) 4.25 MIL/uL (4.0-5.2); WHITE BLOOD COUNT (AUTO) 8.6 K/uL (4.3-11.0)
[2019-04-11 08:00] VITALS: BP 132/84
[2019-04-11 08:05] LABS: CALCIUM, SERUM 8.6 mg/dL (8.5-10.1); CREATININE 0.7 mg/dL (0.6-1.3); MAGNESIUM 2.2 mg/dL (1.8-2.4); PHOSPHORUS 3.1 mg/dL (2.5-4.9); POTASSIUM 3.4 mmol/L (3.5-5.1)
[2019-04-11] MEDS ORDERED: Medication Not On Formulary EA (Cranberry Fruit Concentrate (Cranberry) 450 MG) PO SCH (09:00)
[2019-04-11] MEDS ORDERED: MULTIVIT W/MINERALS 1 TAB TABLET PO SCH (09:00)
[2019-04-11] MEDS: PANTOPRAZOLE 40 MG VIAL IV SCH (09:27)
[2019-04-11] MEDS: ASCORBIC ACID 500 MG TABLET PO SCH ×2 (09:27→18:49)
[2019-04-11] MEDS: DOCUSATE SODIUM 100 MG CAPSULE PO SCH ×2 (09:27→18:49)
[2019-04-11] MEDS: FERROUS SULFATE (325 MG) 325 MG/TAB TABLET PO SCH ×2 (09:28→18:49)
[2019-04-11] MEDS: ENOXAPARIN SODIUM 40 MG/0.4 ML DISP.SYRIN SQ SCH (09:30)
[2019-04-11] MEDS ORDERED: GUAIFENESIN/D-METHORPHAN HB 5 ML UDC PO PRN (10:00)
[2019-04-11] MEDS: PROSOURCE / PROSTAT (PYXIS) 30 ML UDC PO SCH (10:21)
--- NOTE | 2019-04-11 11:25 | NUR ---
CLARIFIED WITH PHARMACIST REGARDING VANCO IV WHEREIN VANCO LEVEL IS 20.MEERA STATED OK TO ADMINISTER 1100 VANCO DOSE AND THEY WILL ADJUST AFTERNOON'S VANCO DOSE.
[2019-04-11] MEDS: VANCOMYCIN 1 GM in IV D5W 250 ML IV SCH (11:35)
[2019-04-11] MEDS: MUPIROCIN OINT 2% 22 GM TUBE SCH (11:40)
[2019-04-11] MEDS: NEOMY SULF/BACITRAC ZN/POLY 15 GM TUBE TP SCH (11:41)
[2019-04-11] MEDS ORDERED: MUPI22OI7 (12:57)
[2019-04-11] MEDS ORDERED: RXVAN XX (12:57)
[2019-04-11] MEDS ORDERED: ENOX40DI SQ (12:57)
[2019-04-11] MEDS ORDERED: PIPE3.377 IV (12:57)
[2019-04-11] MEDS ORDERED: NEOM15OI3 TP (12:57)
[2019-04-11 16:00] VITALS: BP 124/86
--- NOTE | 2019-04-11 19:00 | NUR ---
MS RN PM NOTES A/O X2. RESTING COMFORTABLY IN BED. HOB ELEVATED. NO RESPIRATORY DISTRESS. REPORT GIVEN TO SNF JHONATAN BUCKLEY AT [facility] WITH DISCHARGE INSTRUCTIONS. MARY JANE PICC LINE INTACT AND PATENT FOR CONTINUATION OF IV ATB AT SNF. LEFT AC PERIPHERAL IV ACCES REMOVED WITH CATHETER TIP INTACT, GAUZE DRESSING APPLIED. ALL BELONGINGS ACCOUNTED FOR. PATIENT PICKED UP BY AMBULANCE ACCOMPANIED BY 2 EMT AND LEFT IN STABLE CONDITION.
[2019-04-11] MEDS ORDERED: VANCOMYCIN HCL 0.75 GM in IV D5W 250 ML IV SCH (23:00)
== END 2019-04-11 19:00 | DRG 720 ==
LOC: ER 03:22 → ICU 07:43 → MED 04-09 14:36 → TELE 04-09 18:14
PROVIDERS: ADMIT Student in an Organized Health Care Education/Training Program; ATTEND Registered Nurse
PROC: 02HV33Z Insertion of Infusion Device into Superior Vena Cava, Percutaneous Approach (ICD-10-PCS; principal; 2019-04-07)
PROC: 5A1935Z Respiratory Ventilation, Less than 24 Consecutive Hours (ICD-10-PCS; principal; 2019-04-07)
PROC: B548ZZA Ultrasonography of Superior Vena Cava, Guidance (ICD-10-PCS; principal; 2019-04-07)
PROC: 0BH17EZ Insertion of Endotracheal Airway into Trachea, Via Natural or Artificial Opening (ICD-10-PCS; principal; 2019-04-07)
DX: A41.9 Sepsis, unspecified organism (principal); J96.01 Acute respiratory failure with hypoxia; N17.0 Acute kidney failure with tubular necrosis; L89.106 Pressure-induced deep tissue damage of unspecified part of back; E87.0 Hyperosmolality and hypernatremia; J18.9 Pneumonia, unspecified organism; L89.153 Pressure ulcer of sacral region, stage 3; F03.90 Unspecified dementia, unspecified severity, without behavioral disturbance, psychotic disturbance, mood disturbance, and anxiety; E86.0 Dehydration; H40.9 Unspecified glaucoma; G62.9 Polyneuropathy, unspecified; D64.9 Anemia, unspecified; E83.39 Other disorders of phosphorus metabolism; E83.42 Hypomagnesemia; E87.6 Hypokalemia; J98.11 Atelectasis; I10 Essential (primary) hypertension; K21.9 Gastro-esophageal reflux disease without esophagitis; N39.0 Urinary tract infection, site not specified; Z79.82 Long term (current) use of aspirin; Z96.652 Presence of left artificial knee joint; Y95 Nosocomial condition; M19.90 Unspecified osteoarthritis, unspecified site; Z88.5 Allergy status to narcotic agent; L98.9 Disorder of the skin and subcutaneous tissue, unspecified; Z79.899 Other long term (current) drug therapy; D47.3 Essential (hemorrhagic) thrombocythemia
CPT/HCPCS: 31720; 36415; 36600; 71045-TC; 80048-TC; 80053-TC; 80061-TC; 80076-TC; 80202-TC; 81000-TC; 83605-TC; 83735-TC; 84100-TC; 84443-TC; 84484-TC; 85025-TC; 85730-TC; 87040-TC; 87081-TC; 87086-TC; 87186-TC; 92526; 92611-TC; 93970-TC; 94002-TC; 94003-TC; 94799-TC; 99082-TC; A9563; C1751; C1769; C9113; G0378; J0330; J1650; J2250; J2543; J3370; J3475; J3480; J3490; J7030; J7040; J7060